=== PATIENT | female | born 1980 | race Caucasian/White ===

== ENCOUNTER 2020-01-20 19:12 | Emergency (ER) | payer MEDICAID ==
[2020-01-20] MEDS ORDERED: Ondansetron 4 MG/2 ML SDV IVPUSH ONE (19:48)
[2020-01-20] MEDS ORDERED: Ketorolac 30 MG/ML SDV IVPUSH ONE (19:49)
--- NOTE | 2020-01-20 19:51 | EDM.PDOC ---
ED HPI GENERAL MEDICAL PROBLEM - General Chief Complaint: Genitourinary Problem Stated Complaint: PAIN/UPPER ABD Time Seen by Provider: 01/20/20 19:50 Source of Information: Reports: Patient History Limitations: Reports: No Limitations - History of Present Illness INITIAL COMMENTS - FREE TEXT/NARRATIVE: pt arrived with pain in the upper abdoman. . She was seen at the clinic and found to have a very elevated alk phos and her other livwer enzymes are up/ Her bilirubin is greater than 2. Onset: Today, Other (pt has had some distress for the past 2 days. ) Duration: Hour(s): Location: Reports: Abdomen Associated Symptoms: Reports: Nausea/Vomiting, Weakness Upper Abdomen Pain Score (Numeric/FACES): 10 - Related Data Allergies Allergy/AdvReac Type Severity Reaction Status Date / Time No Known Allergies Allergy Verified 01/20/20 19:32 Home Meds: Home Meds nitrofurantoin macrocrystaL [Nitrofurantoin] 100 mg PO BID 01/20/20 [History] Past Medical History Gastrointestinal History: Reports: Other (See Below) Other Gastrointestinal History: liver pain [employer] History: Reports: Musculoskeletal History: Reports: Back Pain, Chronic Psychiatric History: Reports: Anxiety, Depression - Past Surgical History Female Surgical History: Reports: Hysterectomy Social & Family History - Tobacco Use Smoking Status *Q: Current Every Day Smoker Years of Tobacco use: 21 Packs/Tins Daily: 0.5 Used Tobacco, but Quit: No Second Hand Smoke Exposure: Yes - Caffeine Use Caffeine Use: Reports: Coffee - Recreational Drug Use Recreational Drug Use: No ED ROS GENERAL - Review of Systems Review Of Systems: See Below Constitutional: Reports: Malaise, Weakness, Diaphoresis, Decreased Appetite HEENT: Reports: No Symptoms Respiratory: Reports: No Symptoms Cardiovascular: Reports: No Symptoms Endocrine: Reports: No Symptoms GI/Abdominal: Reports: Abdominal Pain, Decreased Appetite, Nausea, Vomiting : Reports: No Symptoms Musculoskeletal: Reports: No Symptoms Skin: Reports: No Symptoms Neurological: Reports: No Symptoms ED EXAM, GI/ABD - Physical Exam Exam: See Below Text/Narrative:: pt arrived with pain in her upper abdoman. She was at the clinic today and her liver enzymes were elevated. She was scheduled for a US next week. Exam Limited By: No Limitations General Appearance: Alert, Anxious, Severe Distress Ears: Normal TMs Nose: Normal Inspection Throat/Mouth: Normal Inspection Head: Atraumatic Neck: Normal Inspection Respiratory/Chest: No Respiratory Distress Cardiovascular: Regular Rate, Rhythm GI/Abdominal Exam: Other (pt is tender in the rt upper and epigastric area. ) (Female) Exam: Deferred Rectal (Female) Exam: Deferred Back Exam: Other (pain does radiate to the back. ) Extremities: Normal Inspection Neurological: Alert, Oriented, Normal Cognition Psychiatric: Normal Affect Course - Vital Signs Last Recorded V/S: Last Vital Signs Temp 36.7 C 01/20/20 19:39 Pulse 68 01/20/20 19:39 Resp 16 01/20/20 19:39 BP 112/68 01/20/20 19:39 Pulse Ox 98 01/20/20 19:39 - Orders/Labs/Meds Orders: Active Orders 24 hr Category Date Time Status Abdomen Ltd [US] Stat Exams 01/20/20 19:49 Ordered UA W/MICROSCOPIC [URIN] Urgent Lab 01/20/20 19:48 Ordered Sodium Chloride 0.9% [Normal Saline] 1,000 ml Med 01/20/20 20:00 Active IV ASDIRECTED Sodium Chloride 0.9% [Normal Saline] 1,000 ml Med 01/20/20 21:15 Active IV ASDIRECTED Medication Orders Sodium Chloride (Normal Saline) 1,000 mls @ 999 mls/hr IV ASDIRECTED DAXA Last Admin: 01/20/20 20:01 Dose: 999 mls/hr Sodium Chloride (Normal Saline) 1,000 mls @ 99 mls/hr IV ASDIRECTED [facility] Labs: Laboratory Tests 01/20/20 01/20/20 01/20/20 Range/Units 19:58 19:58 19:58 WBC 10.8 (4.5-11.0) K/uL RBC 4.95 (3.30-5.50) M/uL Hgb 14.4 (12.0-15.0) g/dL Hct 44.2 (36.0-48.0) % MCV 89 (80-98) fL MCH 29 (27-31) pg MCHC 33 (32-36) % Plt Count 302 (150-400) K/uL Neut % (Auto) 72 H (36-66) % Lymph % (Auto) 16 L (24-44) % Winn % (Auto) 9 H (2-6) % Eos % (Auto) 2 (2-4) % Baso % (Auto) 1 (0-1) % Sodium 140 (140-148) mmol/L Potassium 3.8 (3.6-5.2) mmol/L Chloride 104 (100-108) mmol/L Carbon Dioxide 27 (21-32) mmol/L Anion Gap 8.8 (5.0-14.0) mmol/L BUN 12 (7-18) mg/dL Creatinine 0.9 (0.6-1.0) mg/dL Est Cr Clr Drug Dosing 73.90 mL/min Estimated GFR (MDRD) > 60 (>60) Glucose 114 H (74-106) mg/dL Calcium 9.0 (8.5-10.1) mg/dL Total Bilirubin 2.7 H (0.2-1.0) mg/dL AST 333 H (15-37) U/L ALT 617 H (12-78) U/L Alkaline Phosphatase 610 H (46-116) U/L Total Protein 7.6 (6.4-8.2) g/dL Albumin 3.3 L (3.4-5.0) g/dL Globulin 4.3 H (2.3-3.5) g/dL Albumin/Globulin Ratio 0.8 L (1.2-2.2) Lipase 448 H (73-393) U/L Meds: Medications Generic Name Dose Route Start Last Admin Trade Name Freq PRN Reason Stop Dose Admin Sodium Chloride 1,000 mls @ 999 mls/hr 01/20/20 20:00 01/20/20 20:01 Normal Saline IV 999 mls/hr ASDIRECTED DAXA Administration Sodium Chloride 1,000 mls @ 99 mls/hr 01/20/20 21:15 Normal Saline IV ASDIRECTED DAXA Discontinued Medications Generic Name Dose Route Start Last Admin Trade Name Freq PRN Reason Stop Dose Admin Ketorolac Tromethamine 30 mg 01/20/20 19:49 01/20/20 20:04 Toradol IVPUSH 01/20/20 19:50 30 mg ONETIME ONE Administration Ondansetron HCl 4 mg 01/20/20 19:48 01/20/20 20:02 Zofran IVPUSH 01/20/20 19:49 4 mg ONETIME ONE Administration - Re-Assessments/Exams Free Text/Narrative Re-Assessment/Exam: 01/20/20 21:06 pt is jaundiced and has elevated liver enzymes. Her alk phos is elevated . She has a common duct at 1 cm. 01/20/20 21:15 Us showed stones in the GB, sludge in the neck of the GB and the common duct is 1 cm. Brianne was called for a ERCP and she will be admitted to a medical floor tonight Departure - Departure Time of Disposition: 21:17 Disposition: DC/Tfer to Acute Hospital 02 Condition: Fair Clinical Impression: Common bile duct stone, Jaundice, Pancreatitis, Calculus of GB w/ acute cyst - Discharge Information Referrals: Sidra Ruiz CNM [Primary Care Provider] - Forms: ED Department Discharge Care Plan Goals: transfer to [facility]. Sepsis Event Note - Evaluation Sepsis Screening Result: No Definite Risk - Focused Exam Vital Signs: Vital Signs Temp Pulse Resp BP Pulse Ox 01/20/20 19:39 36.7 C 68 16 112/68 98 01/20/20 19:31 36.7 C 68 16 112/68 98 Date Exam was Performed: 01/20/20 Time Exam was Performed: 21:15 - My Orders Last 24 Hours: My Active Orders 01/20/20 19:48 UA W/MICROSCOPIC [URIN] Urgent 01/20/20 19:49 Abdomen Ltd [US] Stat 01/20/20 20:00 Sodium Chloride 0.9% [Normal Saline] 1,000 ml IV ASDIRECTED 01/20/20 21:15 Sodium Chloride 0.9% [Normal Saline] 1,000 ml IV ASDIRECTED - Assessment/Plan Last 24 Hours: My Active Orders 01/20/20 19:48 UA W/MICROSCOPIC [URIN] Urgent 01/20/20 19:49 Abdomen Ltd [US] Stat 01/20/20 20:00 Sodium Chloride 0.9% [Normal Saline] 1,000 ml IV ASDIRECTED 01/20/20 21:15 Sodium Chloride 0.9% [Normal Saline] 1,000 ml IV ASDIRECTED
[2020-01-20] MEDS ORDERED: Sodium Chloride 0.9% 1,000 ML IV SCH ×2 (20:00→21:15)
[2020-01-20 21:26] VITALS: BP 114/59; PULSE 93
--- NOTE | 2020-01-20 22:04 | CRLUS ---
INDICATION: Upper abdominal pain TECHNIQUE: Ultrasound abdomen limited. Sonographic images of the right upper quadrant were obtained using vicente-scale and color Doppler images. COMPARISON: None FINDINGS: Liver: The liver parenchyma is normal in echotexture. Gallbladder: Moderate sludge is seen within the gallbladder lumen with shadowing stones noted near the gallbladder fundus. The gallbladder wall is normal in appearance. No pericholecystic fluid is present. No sonographic [place] sign is present. Common bile duct: 11 mm. Mild intrahepatic biliary ductal dilatation is present. Pancreas: The visualized portions of the pancreatic head and body are normal in appearance. Right Kidney: 9.3 cm. No hydronephrosis or ureterectasis is seen. Vascular: Proximal abdominal aorta and IVC are not demonstrated. The visualized portal vein is patent with normal anterograde flow. IMPRESSIONS: 1. Moderate sludge is seen within the gallbladder lumen with shadowing stones noted near the gallbladder fundus. 2. Intra and extrahepatic biliary ductal dilatation is present with the common bile duct measuring 11 mm. Impression Comparison with any prior outside imaging is recommended. If these cannot be obtained, follow up evaluation with MRCP or ERCP recommended. Dictated by Jaziel Parsons MD @ 01/20/2020 10:03:41 PM Dictated by: Jaziel Parsons MD @ 01/20/2020 22:04:07 (Electronically Signed)
== END 2020-01-20 21:50 ==
LOC: JP.ED 19:12
DX: K80.62 Calculus of gallbladder and bile duct with acute cholecystitis without obstruction (principal); R17 Unspecified jaundice; K85.90 Acute pancreatitis without necrosis or infection, unspecified; F17.210 Nicotine dependence, cigarettes, uncomplicated
CPT/HCPCS: 36415; 76705; 80053; 83690; 85025; 96361; 96374; 96375; 99285; J1885; J2405; J7030

== ENCOUNTER 2021-11-19 19:42 | Emergency (ER) | payer MEDICAID ==
[2021-11-19 20:21] VITALS: BP 128/85; PULSE 94
== END 2021-11-19 20:58 | disposition home or self-care (01) ==
LOC: JP.ED 19:42
DX: H66.003 Acute suppurative otitis media without spontaneous rupture of ear drum, bilateral (principal); F17.210 Nicotine dependence, cigarettes, uncomplicated
CPT/HCPCS: 99281; 99282

== ENCOUNTER 2022-04-12 15:57 | Emergency (ER) | payer MEDICAID ==
[2022-04-12 17:39] VITALS: BP 142/92; PULSE 94
[2022-04-12] MEDS ORDERED: Amoxicillin/Clavulanate K 875-125 MG Tab PO ONE (18:01)
[2022-04-12] MEDS ORDERED: Diphtheria,Pertussis(Acell),Tetanus Vaccine 0.5 ML Syringe IM ONE (18:01)
[2022-04-12] MEDS ORDERED: Acetaminophen/HYDROcodone 325-10 MG Tab PO ONE (18:02)
[2022-04-12] MEDS ORDERED: Lidocaine 1% with EPINEPHrine 1:100,000 50 ML MDV INJECT ONE (18:02)
== END 2022-04-12 19:16 | disposition home or self-care (01) ==
LOC: JP.ED 15:57
DX: S61.452A Open bite of left hand, initial encounter (principal); Z86.16 Personal history of COVID-19; Z23 Encounter for immunization; W54.0XXA Bitten by dog, initial encounter
CPT/HCPCS: 12004; 90471; 90715; 99283; A9270

== ENCOUNTER 2024-11-21 18:30 | Emergency (ER) | payer MEDICAID ==
[2024-11-21 18:45] VITALS: BP 119/74; PULSE 85
[2024-11-21 18:50] LABS: APPEARANCE,URINE CLOUDY (CLEAR); BILIRUBIN,URINE NEGATIVE (NEGATIVE); COLOR,URINE YELLOW (YELLOW); GLUCOSE,URINE NEGATIVE (NEGATIVE); KETONES,URINE NEGATIVE (NEGATIVE); LEUKOCYTE ESTERASE,URINE TRACE (NEGATIVE); NITRITE,URINE NEGATIVE (NEGATIVE); OCCULT BLOOD,URINE MODERATE (NEGATIVE); PH,URINE 5.5 (5.0-8.0); PROTEIN,URINE 30 mg/dL (NEGATIVE); UROBILINOGEN,URINE 0.2 EU/dL (0.2-1.0)
[2024-11-21 19:00] LABS: AMORPHOUS SEDIMENT,URINE NOT SEEN; BACTERIA,URINE MANY; EPITHELIAL CELLS,URINE MANY; MUCUS,URINE MANY; WBC,URINE 40-50 (0-5)
== END 2024-11-21 19:35 | disposition home or self-care (01) ==
LOC: JP.ED 18:30
DX: Z20.2 Contact with and (suspected) exposure to infections with a predominantly sexual mode of transmission (principal); F17.210 Nicotine dependence, cigarettes, uncomplicated; Z79.899 Other long term (current) drug therapy; Z86.16 Personal history of COVID-19; Z90.49 Acquired absence of other specified parts of digestive tract; Z90.710 Acquired absence of both cervix and uterus
CPT/HCPCS: 81001; 87210; 99283

== ENCOUNTER 2025-01-08 01:56 | Emergency (ER) | payer MEDICAID ==
[2025-01-08] MEDS: Sodium Chloride 0.9% 1,000 ML IV SCH (02:29)
[2025-01-08] MEDS: Ketorolac 15 MG/ML SDV IVPUSH ONE (02:30)
[2025-01-08] MEDS: Prochlorperazine 10 MG/2 ML SDV IVPUSH ONE (02:31)
[2025-01-08 04:02] VITALS: BP 130/75; PULSE 75
== END 2025-01-08 04:02 | disposition home or self-care (01) ==
LOC: JP.ED 01:56
DX: G43.909 Migraine, unspecified, not intractable, without status migrainosus (principal); F17.200 Nicotine dependence, unspecified, uncomplicated; Z79.899 Other long term (current) drug therapy; Z86.16 Personal history of COVID-19; Z90.49 Acquired absence of other specified parts of digestive tract; Z90.710 Acquired absence of both cervix and uterus
CPT/HCPCS: 96361; 96374; 96375; 99283; J0780; J1885; J7030